=== PATIENT | female | born 1960 | race Caucasian/White ===

== ENCOUNTER → 2017-11-20 | Day surgery (SDC) | payer MEDICARE ==
[2017-11-20 07:34] VITALS: RESP 16; BMI 23.2
[2017-11-20 10:16] VITALS: BP 110/66; PULSE 82; TEMP 97.9
--- NOTE | 2017-11-20 11:45 | USB ---
EXAMINATION TYPE: US biopsy breast VAD RT, US biopsy breast add'l VAD RT, MG diagnostic mammo RT wo CAD DATE OF EXAM: 11/20/2017 CLINICAL HISTORY: N65 Breast lump/mass. Abnormal ultrasound. History of breast implants removed earlier this year with fat injection at time of surgery per patient. TECHNIQUE: Ultrasound guided core biopsy of right breast. COMPARISON: Outside breast ultrasound November 08, 2017 FINDINGS: The procedure of ultrasound guided core biopsy was explained to the patient. Benefits, alternatives, and risks were discussed. An informed consent was then obtained. The patient was placed in supine positioning for imaging and for the procedure. Preprocedure ultrasound redemonstrates larger heterogeneous oval slightly hypoechoic 3.2 cm lesion at 3:00 position in the right breast and a smaller slightly poor defined hypoechoic 6 mm lesion at 11:00 position in right breast at level of palpable abnormality. The overlying skin was prepped and draped in usual sterile fashion. Lidocaine buffered with bicarbonate was used as anesthetic into the skin and subcutaneous tissue up to area of concern in the right breast 2 sites. Lidocaine with epinephrine is used as anesthetic in the deeper tissue.. Under ultrasound guidance, a 12-gauge vacuum assisted biopsy gun device was used to obtain 2 core samples of larger 3:00 lesion and 3 core samples of smaller palpable 11:00 lesion. Following this, a biopsy clip was attempted to be left in lesion. The patient tolerated the procedure well without any immediate complication. The patient was kept in the radiology department for short stay after the procedure and then discharged home in stable condition. Postprocedure mammogram only shows clip in the smaller lesion 11:00 o'clock position. Clip at 3:00 position is not clearly identified, uncertain why if it failed during deployment. Because this lesion is well visualized under ultrasound and could be felt as hard mass during sampling, attempted deployment of the second new clip was deferred. IMPRESSION: Successful ultrasound guided core biopsy of 2 areas of concern in the right breast, full pathology results to follow. Intermediate index of suspicion noted for both masses. Pathology Results: Benign A. BREAST, RIGHT, SITE A 3:00, CORE BIOPSY: FIBROCYSTIC CHANGES INCLUDING FRAGMENTS OF CYST WALL WITH FIBROSIS AND FAT NECROSIS. NEGATIVE FOR MALIGNANCY. B. BREAST, RIGHT, SITE B 11:00, CORE BIOPSY: FAT NECROSIS WITH FIBROSIS, HISTIOCYTES AND CHRONIC INFLAMMATION. NEGATIVE FOR MALIGNANCY. Recommendation Follow up ultrasound of the right breast in 6 months. MTDD
== END ==
LOC: RADUSWWP 07:08
PROVIDERS: ATTEND Family Medicine
DX: R92.8 Other abnormal and inconclusive findings on diagnostic imaging of breast (principal); N60.31 Fibrosclerosis of right breast; N64.1 Fat necrosis of breast
CPT/HCPCS: 88305; 77065; 19083; 19084; A4648; J2001

== ENCOUNTER 2018-04-20 07:04 | Day surgery (SDC) | payer MEDICARE ==
[2018-04-18 10:08] VITALS: BMI 22.8
[~2018-04-20 07:04] MED LIST: LACTATED RINGERS 1,000 ML IV SCH
[2018-04-20] MEDS ORDERED: LACTATED RINGERS 1,000 ML IV ONE (07:14)
[2018-04-20 07:22] VITALS: TEMP 98.3
[2018-04-20] MEDS ORDERED: PROPOFOL 10 MG/ML 20 ML VIAL IV ONE (07:30)
[2018-04-20] MEDS ORDERED: LIDOCAINE 1% INJ 10MG/ML (20 ML MDV) ONE (07:30)
--- NOTE | 2018-04-20 07:39 | P.GSHP ---
History of Present Illness H&P Date: 04/20/18 Chief Complaint: Colon cancer screening Patient here today for screening colonoscopy. No bowel related complaints. No family history of colon cancer. 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 SKIN CANCER History of Any Multi-Drug Resistant Organisms: None Reported Past Surgical History: Breast Surgery, Tonsillectomy Additional Past Surgical History / Comment(s): Bilat breast implants removed 2017, Past Anesthesia/Blood Transfusion Reactions: No Reported Reaction Smoking Status: Former smoker - Past Family History Mother Family Medical History: Cancer Medications and Allergies Home Medications Medication Instructions Recorded Confirmed Type Amitriptyline HCl [Elavil] 150 mg PO HS 11/15/17 04/20/18 History Butalb/APAP/Caff 50-325-40Mg 1 tab PO Q4H PRN 11/15/17 04/20/18 History [Fioricet 50-325-40] Cyclobenzaprine [Flexeril] 10 each PO TID 11/15/17 04/20/18 History FLUoxetine HCL [PROzac] 20 mg PO DAILY 11/15/17 04/20/18 History Loratadine [Claritin] 10 mg PO DAILY 11/15/17 04/20/18 History Progesterone,Micronized 200 mg PO DAILY 11/15/17 04/20/18 History [Prometrium] Topiramate [Topamax] 25 mg PO DAILY 11/15/17 04/20/18 History Topiramate [Topamax] 50 mg PO HS 11/15/17 04/20/18 History valACYclovir HCL [Valtrex] 1,000 mg PO DAILY PRN 11/15/17 04/20/18 History Aspirin/Acetaminophen/Caffeine 1 - 2 each PO DAILY PRN 04/18/18 04/20/18 History [Excedrin Migraine Caplet] Botox Injections 1 each INJ Q90D 04/18/18 History Allergies Allergy/AdvReac Type Severity Reaction Status Date / Time No Known Allergies Allergy Verified 04/20/18 07:25 Surgical - Exam Vital Signs Temp Pulse Resp BP Pulse Ox 98.3 F 94 14 118/76 99 04/20/18 07:21 04/20/18 07:21 04/20/18 07:21 04/20/18 07:21 04/20/18 07:21 Physical exam: General: Well-developed, well-nourished HEENT: Normocephalic, sclerae nonicteric Abdomen: Nontender, nondistended Extremities: No edema Neuro: Alert and oriented Assessment and Plan (1) Colon cancer screening Narrative/Plan: Will proceed with colonoscopy at this time. Current Visit: Yes Status: Acute Code(s): Z12.11 - ENCOUNTER FOR SCREENING FOR MALIGNANT NEOPLASM OF COLON SNOMED Code(s): 203114172
--- NOTE | 2018-04-20 07:57 | P.PCN ---
Date of Procedure: 04/20/18 Procedure(s) Performed: PREOPERATIVE DIAGNOSIS: Colon cancer screening POSTOPERATIVE DIAGNOSIS: Small sigmoid polyp PROCEDURE: Colonoscopy with biopsy ANESTHESIA: MAC SURGEON: Mehdi Sanchez M.D. SPECIMENS: Polyp ENDOSCOPIC PROCEDURE: The patient was placed on the endoscopy table in the left decubitus position. The Olympus colonoscope was inserted into the anus and passed under direct visualization to the base of the cecum. The appendiceal orifice was visualized. From that point the scope was slowly withdrawn inspecting all surfaces carefully. There were no neoplastic inflammatory or polypoid lesions throughout the cecum, ascending, transverse, and descending colon. In the sigmoid a small polyp was seen. This was removed using the cold biopsy forceps. The remainder of the sigmoid and rectum appeared normal. There was no visible diverticulosis. Digital rectal examination was normal. The patient was taken to the recovery room in stable condition per anesthesia guidelines. RECOMMENDATIONS: Await biopsy results. Anticipate follow-up colonoscopy 5-10 years.
[2018-04-20 08:01] VITALS: RESP 16
[2018-04-20 08:23] VITALS: BP 103/67; PULSE 85
== END 2018-04-20 08:38 | disposition home or self-care (01) ==
LOC: ORWHC2ENDO 07:04
PROVIDERS: ATTEND Surgery
DX: Z12.11 Encounter for screening for malignant neoplasm of colon (principal); D12.5 Benign neoplasm of sigmoid colon; F39 Unspecified mood [affective] disorder; M79.7 Fibromyalgia; Z79.82 Long term (current) use of aspirin; Z87.891 Personal history of nicotine dependence; Z85.828 Personal history of other malignant neoplasm of skin; Z79.899 Other long term (current) drug therapy; G43.909 Migraine, unspecified, not intractable, without status migrainosus
CPT/HCPCS: 88305; 45380; J2001; J2704

== ENCOUNTER → 2018-06-12 | Outpatient (CLI) | payer MEDICARE ==
--- NOTE | 2018-06-12 11:50 | USB ---
Reason for exam: follow-up at short interval from prior study. History: Benign US biopsy breast VAD RT of the right breast, November 20, 2017. Benign US biopsy breast add'l VAD RT of the right breast, November 20, 2017. Implant Removal of both breasts, July 2017. Physical Findings: Nurse did not find any significant physical abnormalities on exam. US Breast RT Technologist: Lilia Bearden, RT (R)(M) Right complete breast ultrasound includes all four quadrants, the retroareolar region and axilla. Finding demonstrates a 5.3 x 4.4 x 1.8cm complex fluid collection at 10-3 o'clock with interval, central isoechoic/hypoechoic, more fluid surrounding, may be resolving hematoma. Prior 10 o'clock fluid collection resolved. These results were verbally communicated with the patient and result sheet given to the patient on 06/12/18. ASSESSMENT: Probably benign, BI-RAD 3 RECOMMENDATION: Follow-up diagnostic mammogram of both breasts in 6 months. Ultrasound of the right breast in 6 months.
== END ==
LOC: RADUSWWP 09:05
PROVIDERS: ATTEND Family Medicine
DX: R92.8 Other abnormal and inconclusive findings on diagnostic imaging of breast (principal)

== ENCOUNTER → 2019-12-27 | Outpatient (CLI) | payer MEDICARE ==
--- NOTE | 2019-12-31 09:02 | MM ---
Reason for exam: clinical finding. Last mammogram was performed 2 years and 1 month ago. History: Patient is postmenopausal, history of other cancer, and is nulliparous. Family history of breast cancer in mother at age 40. Benign US biopsy breast VAD RT of the right breast, November 20, 2017. Benign US biopsy breast add'l VAD RT of the right breast, November 20, 2017. Retro-pectoral silicone gel implants in both breasts, 2018. Implant Removal of both breasts, July 2017. Taking other hormone for 3 years beginning at age 56. Physical Findings: Nurse Summary: 1.5cm nodule in the left breast at 11 o'clock (nurse mj). MG 3D Diag Mammo Imp W/Cad CARMELA Bilateral CC, MLO, and ID view(s) were taken. CC with magnification and ML with magnification view(s) were taken of the right breast. Prior study comparison: November 20, 2017, right breast MG diagnostic mammo RT wo CAD. The breast tissue is heterogeneously dense. This may lower the sensitivity of mammography. Previous mammotome biopsy in the right breast at 11 o'clock. Retropectoral silicone implants. New loosely grouped calcifications posterior upper outer quadrant on the right appear course. 6 month follow up recommended. Partially visualized 1.8cm thin walled structure far posterior 11-12 o'clock at the palpable site. These results were verbally communicated with the patient and result sheet given to the patient on 12/27/19. ASSESSMENT: Incomplete: need additional imaging evaluation, BI-RAD 0 RECOMMENDATION: Ultrasound of the left breast.
--- NOTE | 2019-12-31 09:04 | USB ---
Reason for exam: additional evaluation requested from abnormal screening. History: Patient is postmenopausal, history of other cancer, and is nulliparous. Family history of breast cancer in mother at age 40. Benign US biopsy breast VAD RT of the right breast, November 20, 2017. Benign US biopsy breast add'l VAD RT of the right breast, November 20, 2017. Retro-pectoral silicone gel implants in both breasts, 2018. Implant Removal of both breasts, July 2017. Taking other hormone for 3 years beginning at age 56. US Breast Limited LT Left limited breast ultrasound including focal area of concern, retroareolar and axilla demonstrates a 1.8 x 1.6 x 1.9cm oval, cystic lesion at 11 o'clock, possible large oil cyst. Scanned 9-12 o'clock and periareolar. These results were verbally communicated with the patient and result sheet given to the patient on 12/27/19. ASSESSMENT: Probably benign, BI-RAD 3 RECOMMENDATION: Follow-up diagnostic mammogram in 6 months. (right breast for loosely grouped course calcifications)
== END | disposition home or self-care (01) ==
LOC: RADMAMWWP 12:41
PROVIDERS: ATTEND Family Medicine
DX: R92.8 Other abnormal and inconclusive findings on diagnostic imaging of breast (principal); N63.22 Unspecified lump in the left breast, upper inner quadrant; N64.89 Other specified disorders of breast
CPT/HCPCS: 77066; 76642; G0279; 77062

== ENCOUNTER → 2021-04-08 | Outpatient (CLI) | payer MEDICARE ==
--- NOTE | 2021-04-09 10:38 | MM ---
Reason for exam: clinical finding. Last mammogram was performed 1 year and 3 months ago. History: Patient is postmenopausal, history of other cancer, and is nulliparous. Family history of breast cancer in mother at age 40. Benign US biopsy breast VAD RT of the right breast, November 20, 2017. Benign US biopsy breast add'l VAD RT of the right breast, November 20, 2017. Retro-pectoral silicone gel implants in both breasts, 2018. Implant Removal of both breasts, July 2017. Taking estrogen for 5 years. Taking other hormone for 3 years beginning at age 56. Indicated problem(s): lump or thickening in the left breast. Physical Findings: Nurse Summary: 2-3cm nodule in the left breast at 10-11 o'clock (nurse db). MG Diag Mamm Implants CARMELA w CAD Bilateral CC, MLO, and ID view(s) were taken. Prior study comparison: December 27, 2019, bilateral MG 3d diag mammo imp w/cad CARMELA. The breast tissue is heterogeneously dense. This may lower the sensitivity of mammography. Palpable left breast corresponds to oil cyst. No significant new findings when compared with previous films. These results were verbally communicated with the patient and result sheet given to the patient on 04/08/21. ASSESSMENT: Benign, BI-RAD 2 RECOMMENDATION: Follow-up diagnostic mammogram of both breasts in 1 year.
== END | disposition home or self-care (01) ==
LOC: RADMAMWWP 12:36
PROVIDERS: ATTEND Family Medicine
DX: N63.22 Unspecified lump in the left breast, upper inner quadrant (principal); Z80.3 Family history of malignant neoplasm of breast
CPT/HCPCS: 77066